=== PATIENT | female | born 1955 | race Caucasian/White ===

== ENCOUNTER 2016-05-15 11:43 | Emergency (ER) | payer BC ==
[2016-05-15 13:37] VITALS: BP 136/66
--- NOTE | 2016-05-15 13:59 | UC ---
Throat Pain/Nasal Osvaldo HPI - HPI Summary HPI Summary: COUGH , NASAL CONGESTION X 10 DAYS + SINUS PAIN AND PRESSURE , PND + FEVER , CHILLS - History of Current Complaint Chief Complaint: UCRespiratory Stated Complaint: HEAD,CHEST CONGESTION Time Seen by Provider: 05/15/16 13:36 Hx Obtained From: Patient Hx Last Menstrual Period: n/a Onset/Duration: Gradual Onset, Lasting Days - 10, Still Present Severity: Moderate Cough: Nonproductive Associated Signs & Symptoms: Positive: Sinus Discomfort, Nasal Discharge, Fever - Allergies/Home Medications Allergies/Adverse Reactions: Allergies Allergy/AdvReac Type Severity Reaction Status Date / Time Propoxyphene [From Darvon] Allergy Hives Verified 05/15/16 13:38 Budesonide [From Symbicort] AdvReac Leg Cramps Verified 05/15/16 13:38 Formoterol [From Symbicort] AdvReac Leg Cramps Verified 05/15/16 13:38 Mometasone [From Dulera] AdvReac Leg Cramps Verified 05/15/16 13:38 environmental Allergy Unknown Congestion Uncoded 05/15/16 13:38 Home Medications: Home Medications Cyanocobalamin TAB* [Vitamin B12 TAB*] 1,000 mcg PO DAILY 05/15/16 [History Confirmed 05/15/16] DULoxetine DR CAP* [Cymbalta CAP*] 60 mg PO DAILY 05/15/16 [History Confirmed ] Fluticasone HFA 110 mcg(NF) [Flovent HFA 110 mcg(NF)] 2 puff INH BID 05/15/16 [ History Confirmed 05/15/16] PMH/Surg Hx/FS Hx/Imm Hx Endocrine History Of: Reports: Thyroid Disease - hypo Denies: Diabetes Cardiovascular History Of: Denies: Hypertension, Pacemaker/ICD Respiratory History Of: Reports: Asthma GI/ History Of: Denies: Renal Disease Cancer History Of: Denies: Breast Cancer - Surgical History Surgical History: Yes Surgery Procedure, Year, and Place: ACROMINECTOMY RT SHOULDER,UTERINE ARTERY EMBOLIZATION, - Family History Known Family History: Positive: Unknown Negative: Diabetes - Social History Alcohol Use: None Substance Use Type: None, Prescribed Smoking Status (MU): Former Smoker Type: Cigarettes Amount Used/How Often: 3 ppd Have You Smoked in the Last Year: No When Did the Patient Quit Smoking/Using Tobacco: 13 years Review of Systems Constitutional: Fever, Chills, Fatigue Skin: Negative Eyes: Negative ENT: Sore Throat, Nasal Discharge Respiratory: Cough Cardiovascular: Negative Gastrointestinal: Negative Genitourinary: Negative All Other Systems Reviewed And Are Negative: Yes Physical Exam Triage Information Reviewed: Yes Appearance: Well-Appearing, No Pain Distress, Well-Nourished Vital Signs: Initial Vital Signs Temp 98.4 F 05/15/16 13:31 Pulse 87 05/15/16 13:31 Resp 24 05/15/16 13:31 BP 136/66 05/15/16 13:31 Pulse Ox 99 05/15/16 13:31 Vital Signs Reviewed: Yes Eye Exam: Normal Eyes: Positive: Conjunctiva Clear ENT: Positive: Normal ENT inspection, Hearing grossly normal, Pharyngeal erythema, Nasal congestion, Nasal drainage, TMs normal Neck: Positive: Supple, Nontender, No Lymphadenopathy Respiratory: Positive: Chest non-tender, Lungs clear, Normal breath sounds Cardiovascular: Positive: RRR, No Murmur, Pulses Normal Abdominal Exam: Normal Throat Pain/Nasal Course/Dx - Differential Dx/Diagnosis Provider Diagnoses: SINUSITIS Discharge - Discharge Plan Condition: Stable Disposition: HOME Prescriptions: Amoxicillin/Clavulanate TAB* [Augmentin TAB 875*] 875 mg PO BID #20 tab Patient Education Materials: Sinusitis (ED) Referrals: Mercedes Owens MD [Primary Care Provider] - If Needed
== END 2016-05-15 14:30 | disposition home or self-care (01) ==
LOC: UCCORT 11:43
DX: J32.9 Chronic sinusitis, unspecified (principal); Z88.8 Allergy status to other drugs, medicaments and biological substances; Z87.891 Personal history of nicotine dependence
CPT/HCPCS: 99212; G0463

== ENCOUNTER 2016-07-27 17:30 | Emergency (ER) | payer BC ==
[2016-07-27 19:23] VITALS: BP 124/64
--- NOTE | 2016-07-27 19:39 | ED ---
Upper Extremity Pain - HPI Summary HPI Summary: 60 yr old female who fell over her tractor last week, and has pain to the distal ulna right arm that persists. Pain is moderate, 5/10, non radiating, localized to distal radius area, worse with movement of wrist. The patient has been taking motrin with little relief. She came in after a week because she still has pain. - History of Current Complaint Chief Complaint: UCUpperExtremity Stated Complaint: FALL-RT ARM PAIN Time Seen by Provider: 07/27/16 19:13 Hx Last Menstrual Period: n/a - Allergies/Home Medications Allergies/Adverse Reactions: Allergies Allergy/AdvReac Type Severity Reaction Status Date / Time Propoxyphene [From Darvon] Allergy Hives Verified 07/27/16 19:17 Budesonide [From Symbicort] AdvReac Leg Cramps Verified 07/27/16 19:17 Formoterol [From Symbicort] AdvReac Leg Cramps Verified 07/27/16 19:17 Mometasone [From Dulera] AdvReac Leg Cramps Verified 07/27/16 19:17 environmental Allergy Unknown Congestion Uncoded 07/27/16 19:17 PMH/Surg Hx/FS Hx/Imm Hx Endocrine/Hematology History: Reports: Hx Thyroid Disease - hypo Denies: Hx Diabetes Cardiovascular History: Reports: Other Cardiovascular Problems/Disorders - HX PERICARDITIS, ECTASIA OF ACENDING AORTA Denies: Hx Hypertension, Hx Pacemaker/ICD Respiratory History: Reports: Hx Asthma History: Denies: Hx Renal Disease Musculoskeletal History: Denies: Hx Osteoporosis Sensory History: Denies: Hx Hearing Aid Psychiatric History: Denies: Hx Panic Disorder - Cancer History Hx Chemotherapy: No Hx Radiation Therapy: No - RADIOACTIVE IODINE FOR THYROID - Surgical History Surgery Procedure, Year, and Place: ACROMINECTOMY RT SHOULDER,UTERINE ARTERY EMBOLIZATION, Infectious Disease History: No Infectious Disease History: Denies: Hx Clostridium Difficile, Hx Hepatitis, Hx Human Immunodeficiency Virus (HIV), Hx of Known/Suspected MRSA, Hx Shingles, Hx Tuberculosis, Hx Known/ Suspected VRE, Hx Known/Suspected VRSA, History Other Infectious Disease, Traveled Outside the [place] in Last 30 Days - Family History Known Family History: Positive: Unknown Negative: Diabetes - Social History Alcohol Use: None Substance Use Type: Reports: None, Prescribed Smoking Status (MU): Former Smoker Type: Cigarettes Amount Used/How Often: 3 ppd Have You Smoked in the Last Year: No Review of Systems Constitutional: Negative Eyes: Negative Positive: Other - pain in right wrist, distal ulna Neurological: Negative Psychological: Normal All Other Systems Reviewed And Are Negative: Yes Physical Exam Triage Information Reviewed: Yes Vital Signs On Initial Exam: Initial Vitals Temp Pulse Resp BP Pulse Ox 97.4 F 66 18 124/64 97 07/27/16 19:19 07/27/16 19:19 07/27/16 19:19 07/27/16 19:19 07/27/16 19:19 Vital Signs Reviewed: Yes Appearance: Positive: Well-Appearing, No Pain Distress Skin: Positive: Warm Head/Face: Positive: Normal Head/Face Inspection Eyes: Positive: Normal, EOMI ENT: Positive: Normal ENT inspection Respiratory/Lung Sounds: Positive: Other - normal effort Cardiovascular: Positive: Pulses are Symmetrical in both Upper and Lower Extremities - normal radial pulse right arm only examined Musculoskeletal: Positive: Other - Tender over the right distal ulna with slight bruising as well. no snuff box tenderness, no hand deformity or tenderness. No tenderness over the elbow. Neurological: Positive: Normal, Sensory/Motor Intact, Alert, Oriented to Person Place, Time, CN Intact II-III Psychiatric: Positive: Normal Procedures - Splinting Location: right forearm Hand-Made Type: orthoglass Splint: volar Pre-Proc Neuro Vasc Exam: normal Post-Proc Neuro Vasc Exam: normal Diagnostics - Vital Signs Vital Signs Temp Pulse Resp BP Pulse Ox 07/27/16 19:19 97.4 F 66 18 124/64 97 - Laboratory Lab Statement: Any lab studies that have been ordered have been reviewed, and results considered in the medical decision making process. - Radiology wrist Xray Interpretation: Positive (See Comments) Radiology Interpretation Completed By: Radiologist Course/Dx - Course Course Of Treatment: volar splint applied for distal ulna fracture. [facility], Dr Fields - Diagnoses Provider Diagnoses: Nondisplaced fracture of distal end of ulna Discharge - Discharge Plan Condition: Good Disposition: HOME Patient Education Materials: Wrist Fracture in Adults (ED) Referrals: Mercedes Owens MD [Primary Care Provider] - Jeffrey Fields MD [Medical Doctor] - 1 Day
--- NOTE | 2016-07-27 19:52 | RAD ---
INDICATION: Right wrist injury. TECHNIQUE: 4 views of the right wrist were obtained. FINDINGS: The bones are in normal alignment. There is a small calcific density adjacent to the ulnar styloid process possibly representing a small fracture fragment versus soft tissue calcification. Joint spaces appear maintained. IMPRESSION: SMALL CALCIFIC DENSITY ADJACENT TO THE ULNAR STYLOID PROCESS CONSISTENT WITH EITHER A SMALL AVULSION FRACTURE FRAGMENT OR SOFT TISSUE CALCIFICATION.
--- NOTE | 2016-07-27 19:53 | RAD ---
INDICATION: Right forearm injury. TECHNIQUE: 2 views of the right forearm were obtained. FINDINGS: The bones are in normal alignment. No fracture is seen. IMPRESSION: NO EVIDENCE FOR FRACTURE.
== END 2016-07-27 20:15 | disposition home or self-care (01) ==
LOC: UCCORT 17:30
DX: S52.601A Unspecified fracture of lower end of right ulna, initial encounter for closed fracture (principal); W19.XXXA Unspecified fall, initial encounter; Y93.9 Activity, unspecified; Y92.9 Unspecified place or not applicable; E03.9 Hypothyroidism, unspecified; J45.909 Unspecified asthma, uncomplicated; I77.819 Aortic ectasia, unspecified site; Z88.8 Allergy status to other drugs, medicaments and biological substances; Z87.891 Personal history of nicotine dependence
CPT/HCPCS: 99211; G0463

== ENCOUNTER 2017-09-05 14:58 | Emergency (ER) | payer BC ==
[2017-09-05 15:25] VITALS: BP 121/63
--- NOTE | 2017-09-05 15:52 | UC ---
Complaint Female HPI - HPI Summary HPI Summary: Patient complains of urinary pressure on and off occasional pain for the past 2 weeks. today things got significantly worse and noticed blood in her urine. Compa tract infection was over year and half ago. No vaginal discharge no fevers chills nausea vomiting no back pain - History Of Current Complaint Chief Complaint: UCGU Stated Complaint: BLOOD IN URINE Time Seen by Provider: 09/05/17 15:31 Hx Obtained From: Patient Hx Last Menstrual Period: n/a ?: No Onset/Duration: Gradual Onset, Lasting Weeks - 2, Worse Since - today Timing: Constant Severity Currently: Mild Character: Burning, Cramping Aggravating Factor(s): Urination Alleviating Factor(s): Nothing Associated Signs And Symptoms: Positive: Negative - Allergies/Home Medications Allergies/Adverse Reactions: Allergies Allergy/AdvReac Type Severity Reaction Status Date / Time budesonide [From Symbicort] Allergy Leg Cramps Verified 09/05/17 15:38 formoterol [From Dulera] Allergy Leg Cramps Verified 09/05/17 15:38 mometasone furoate Allergy Leg Cramps Verified 09/05/17 15:38 [From Dulera] propoxyphene [From Darvon] Allergy Hives Verified 09/05/17 15:38 environmental Allergy Unknown Congestion Uncoded 09/05/17 15:38 Home Medications: Home Medications Cholecalciferol TAB* [Vitamin D TAB*] 1,000 unit PO DAILY 09/05/17 [History Confirmed 09/05/17] Vit C/E/Zn/Coppr/Lutein/Zeaxan [Preservision Areds 2 Softgel] 1 each PO BID 07/20 [History Confirmed 09/05/17] PMH/Surg Hx/FS Hx/Imm Hx Endocrine History: Hypothyroidism Respiratory History: Asthma GI/ History: Gastroesophageal Reflux Psychological History: Depression - Surgical History Surgical History: Yes Surgery Procedure, Year, and Place: ACROMINECTOMY RT SHOULDER,UTERINE ARTERY EMBOLIZATION, - Family History Known Family History: Positive: Unknown Negative: Diabetes - Social History Occupation: Employed Full-time Lives: With Family Alcohol Use: None Substance Use Type: None Smoking Status (MU): Former Smoker Type: Cigarettes Amount Used/How Often: 3 ppd Have You Smoked in the Last Year: No When Did the Patient Quit Smoking/Using Tobacco: 13 years - Immunization History Most Recent Influenza Vaccination: NONE Most Recent Tetanus Shot: UTD Most Recent Pneumonia Vaccination: NONE Review of Systems Constitutional: Negative Skin: Negative Eyes: Negative ENT: Negative Respiratory: Negative Cardiovascular: Negative Gastrointestinal: Negative Genitourinary: Dysuria, Hematuria, Frequency, Urgency Motor: Negative Neurovascular: Negative Musculoskeletal: Negative Neurological: Negative Psychological: Negative Is Patient Immunocompromised?: No All Other Systems Reviewed And Are Negative: Yes Physical Exam Triage Information Reviewed: Yes Appearance: Well-Appearing, No Pain Distress, Well-Nourished Vital Signs: Initial Vital Signs Temp 98.1 F 09/05/17 15:21 Pulse 77 09/05/17 15:21 Resp 18 09/05/17 15:21 BP 121/63 09/05/17 15:21 Pulse Ox 97 09/05/17 15:21 Vital Signs Reviewed: Yes Eye Exam: Normal Eyes: Positive: Conjunctiva Clear ENT Exam: Normal ENT: Positive: Normal ENT inspection, Hearing grossly normal. Negative: Trismus , Muffled voice, Hoarse voice Dental Exam: Normal Neck exam: Normal Neck: Positive: Supple, Nontender Respiratory Exam: Normal Respiratory: Positive: Chest non-tender, No respiratory distress, No accessory muscle use Cardiovascular Exam: Normal Cardiovascular: Positive: RRR, Pulses Normal, Brisk Capillary Refill Abdominal Exam: Normal Abdomen Description: Positive: No Organomegaly, Soft, Other: - suprapubic discomfort. Negative: CVA Tenderness (R), CVA Tenderness (L) Bowel Sounds: Positive: Present Musculoskeletal Exam: Normal Musculoskeletal: Positive: Strength Intact, ROM Intact Neurological Exam: Normal Neurological: Positive: Alert, Muscle Tone Normal Psychological Exam: Normal Skin Exam: Normal Diagnostics - Laboratory Diagnostic Studies Completed/Ordered: U/A -- +3 blood, +1 leukesterace Complaint Female Dx - Course Course Of Treatment: macrobid, pyridium, increase fluids, culture urine follow with pcp prn - Differential Dx/Diagnosis Provider Diagnoses: UTI Discharge - Sign-Out/Discharge Documenting (check all that apply): Discharge/Admit/Transfer - Discharge Plan Condition: Stable Disposition: HOME Prescriptions: Nitrofurantoin Monohyd/M-Cryst [Macrobid 100 mg Capsule] 100 mg PO BID #10 cap Phenazopyridine TAB* [Pyridium 100 mg TAB*] 100 mg PO TID PRN #9 tab PRN Reason: urinary pain/burning/pressure Patient Education Materials: Phenazopyridine (By mouth), Urinary Tract Infection in Women (ED) Referrals: Mercedes Owens MD [Primary Care Provider] - If Needed - Billing Disposition and Condition Condition: STABLE Disposition: Home
== END 2017-09-05 15:49 | disposition home or self-care (01) ==
LOC: UCEAST 14:58
DX: N39.0 Urinary tract infection, site not specified (principal); B96.20 Unspecified Escherichia coli [E. coli] as the cause of diseases classified elsewhere; Z88.5 Allergy status to narcotic agent; Z88.8 Allergy status to other drugs, medicaments and biological substances; Z87.891 Personal history of nicotine dependence
CPT/HCPCS: 81003; 87077; 87086; 87186; 99212; G0463

== ENCOUNTER 2018-02-28 09:46 | Emergency (ER) | payer BC ==
[2018-02-28 11:37] VITALS: BP 113/65
--- NOTE | 2018-02-28 11:57 | UC ---
UC General HPI - HPI Summary HPI Summary: bent over and got sudden pain across her low back 9 days ago. c/o severe spasm and pain across her low back. pain sometimes shoots into her legs. no hx acute injury. no fever, abdominal pain or bowel/bladder dysfunction. no numb/weak legs. no saddle anesthesia. hx disc dz low back. self tx left over tramadol, flexeril and Ib with little effect. - History of Current Complaint Chief Complaint: UCBackPain Stated Complaint: LOWER BACK PAIN Time Seen by Provider: 02/28/18 11:49 Hx Obtained From: Patient, Family/Wax Pumper Hx Last Menstrual Period: n/a Onset/Duration: Sudden Onset Pain Intensity: 10 Aggravating: movement Associated Signs & Symptoms: Negative: Abdominal Pain, Fever, Weakness - Allergy/Home Medications Allergies/Adverse Reactions: Allergies Allergy/AdvReac Type Severity Reaction Status Date / Time budesonide [From Symbicort] Allergy Leg Cramps Verified 02/28/18 11:31 formoterol [From Dulera] Allergy Leg Cramps Verified 02/28/18 11:31 mometasone furoate Allergy Leg Cramps Verified 02/28/18 11:31 [From Dulera] propoxyphene [From Darvon] Allergy Hives Verified 02/28/18 11:31 environmental Allergy Unknown Congestion Uncoded 02/28/18 11:31 Home Medications: Home Medications Cyclobenzaprine TAB* [Flexeril 10 MG TAB*] 10 mg PO TID PRN 02/28/18 [History Confirmed 02/28/18] Montelukast Sodium TAB* [Singulair 10 MG TAB*] 1 tab PO DAILY 02/28/18 [History Confirmed 02/28/18] Omeprazole CAP* [Prilosec CAP* 20 MG] 20 mg PO DAILY 02/28/18 [History Confirmed 02/28/18] traMADol TAB* [Ultram*] 50 mg PO Q6HR PRN 02/28/18 [History Confirmed 02/28/18] PMH/Surg Hx/FS Hx/Imm Hx - Additional Past Medical History Additional PMH: sleep disturbance, disc dz low back Endocrine History: Thyroid Disease GI/ History: Gastroesophageal Reflux - Surgical History Surgical History: Yes Surgery Procedure, Year, and Place: ACROMINECTOMY RT SHOULDER,UTERINE ARTERY EMBOLIZATION, - Family History Known Family History: Positive: Unknown Negative: Diabetes - Social History Alcohol Use: None Substance Use Type: None Smoking Status (MU): Former Smoker Type: Cigarettes Amount Used/How Often: 3 ppd Have You Smoked in the Last Year: No When Did the Patient Quit Smoking/Using Tobacco: 13 years - Immunization History Most Recent Influenza Vaccination: NONE Most Recent Tetanus Shot: UTD Most Recent Pneumonia Vaccination: NONE Vaccination Up to Date: Yes Review of Systems All Other Systems Reviewed And Are Negative: Yes Constitutional: Negative: Fever Skin: Positive: Negative Eyes: Positive: Negative ENT: Positive: Negative Respiratory: Positive: Negative Cardiovascular: Positive: Negative Gastrointestinal: Negative: Abdominal Pain Genitourinary: Positive: Negative Motor: Positive: Negative Neurovascular: Positive: Negative Musculoskeletal: Positive: Other: - low back pain Neurological: Negative: Weakness, Paresthesia, Numbness Psychological: Positive: Negative Physical Exam Triage Information Reviewed: Yes Appearance: Pain Distress Vital Signs: Initial Vital Signs Temp 97.7 F 02/28/18 11:29 Pulse 79 02/28/18 11:29 Resp 20 02/28/18 11:29 BP 113/65 02/28/18 11:29 Pulse Ox 100 02/28/18 11:29 Vital Signs Reviewed: Yes Eyes: Positive: Conjunctiva Clear ENT: Positive: Normal ENT inspection Neck: Positive: Supple, Nontender, No Lymphadenopathy, Other: - c-spine non tender Respiratory: Positive: Lungs clear, Normal breath sounds Cardiovascular: Positive: RRR, No Murmur Abdomen Description: Positive: Nontender, No Organomegaly, Soft. Negative: Distended, Guarding, Pulsatile Mass Bowel Sounds: Positive: Present Musculoskeletal: Positive: Other: - Back: flat lordosis in lumbar region and low back spasm with any movement. Thoracic and lumbar spine are non tender to palpation. tender over R low back. ROM restricted at waist due to pain/spasm. No saddle anesthesia. 5/5 strength, 2+ reflexes x4, sensation intact x4. Straight leg raises causes spasm in R low back. Diagnostics - Radiology No standard instances Radiology Interpretation Completed By: Radiologist - LUMBAR SPINE= Mild interval progression of degenerative spondylosis and facet joint osteoarthritis compared with the [address] CT. Course/Dx - Differential Dx - Multi-Symptom Differential Diagnoses: Other - no concern for acute abdomen, infection or cauda equina. - Diagnoses Provider Diagnosis: Back pain Discharge - Sign-Out/Discharge Documenting (check all that apply): Patient Departure All imaging exams completed and their final reports reviewed: Yes - Discharge Plan Condition: Stable Disposition: HOME Prescriptions: Cyclobenzaprine TAB* [Flexeril 10 MG TAB*] 10 mg PO TID #10 tab methylPREDNISolone [Medrol Dosepak 4 MG*] 0 mg PO .SEE ELEN INSTRUCTION #1 tab Patient Education Materials: Acute Low Back Pain (ED) Referrals: Jani Cheng MD [Medical Doctor] - As Soon As Possible Mercedes Owens MD [Primary Care Provider] - 3 Days Additional Instructions: STOP THE TRAMADOL AND MOTRIN - Billing Disposition and Condition Condition: STABLE Disposition: Home
[2018-02-28] MEDS ORDERED: predniSONE TAB* 20 MG PO ONE (12:01)
[2018-02-28] MEDS ORDERED: LORazepam INJ* 2 MG/ML 1 ML VIAL ONE ×2 (12:03→12:14)
[2018-02-28] MEDS ORDERED: LORazepam TAB(*) 1 MG ONE (12:10)
== END 2018-02-28 13:23 | disposition home or self-care (01) ==
LOC: UCCORT 09:46
DX: M54.5 Low back pain (principal); Z88.8 Allergy status to other drugs, medicaments and biological substances; Z88.6 Allergy status to analgesic agent; K21.9 Gastro-esophageal reflux disease without esophagitis; Z87.891 Personal history of nicotine dependence
CPT/HCPCS: 72100; 99212; A9270-GY; G0463; J7512